=== PATIENT | male | born 1970 | race Caucasian/White ===

== ENCOUNTER 2020-10-08 09:54 | Day surgery (SDC) | payer OTHER, BC ==
[2020-10-07 08:18] VITALS: BMI 31.4
[~2020-10-08 09:54] MED LIST: LACTATED RINGERS 1,000 ML IV SCH
[2020-10-08 10:50] VITALS: TEMP 98.3
[2020-10-08] MEDS ORDERED: LIDOCAINE 1% INJ 10MG/ML (20 ML MDV) ONE (11:42)
[2020-10-08] MEDS ORDERED: PROPOFOL 10 MG/ML 20 ML VIAL IV ONE (11:42)
--- NOTE | 2020-10-08 11:57 | P.PCN ---
Date of Procedure: 10/08/20 Procedure(s) Performed: BRIEF HISTORY: Patient is a 50-year-old pleasant male scheduled for an elective colonoscopy as a part of screening for colorectal neoplasia. PROCEDURE PERFORMED: Colonoscopy with biopsy. PREOPERATIVE DIAGNOSIS: Screening for colon cancer. IV sedation per Anesthesia. PROCEDURE: After informed consent was obtained, the patient, was brought into the endoscopy unit. IV sedation was administered by Anesthesia under continuous monitoring. Digital rectal examination was normal. Initially the Olympus CF-160 flexible video colonoscope was then inserted in the rectum, gradually advanced into the cecum without any difficulty. Careful examination was performed as the scope was gradually being withdrawn. Ileocecal valve and the appendiceal orifice were visualized and appeared normal. Prep was excellent. Mucosa of the cecum appeared normal. In the ascending colon there was a 3 mm polyp that was removed by cold biopsy. Rest of the ascending colon, transverse colon, descending colon, sigmoid colon, and rectum appeared normal. Scattered sigmoid diverticula seen. Retroflexion was performed in the rectum and no lesions were seen. The patient tolerated the procedure well. IMPRESSION: 3 mm ascending colon polyp status post cold biopsy Scattered sigmoid diverticulosis RECOMMENDATIONS: Findings of this examination were discussed with the patient as well as his family. He was advised to follow with the biopsy results. If the biopsy shows an adenoma he can have a repeat colonoscopy in 5 years.
[2020-10-08 12:03] VITALS: RESP 17
[2020-10-08 12:15] VITALS: BP 149/98; PULSE 78
== END 2020-10-08 12:43 | disposition home or self-care (01) ==
LOC: ORWHC2ENDO 09:54
PROVIDERS: ATTEND Internal Medicine Gastroenterology
DX: Z12.11 Encounter for screening for malignant neoplasm of colon (principal); K63.5 Polyp of colon; K57.30 Diverticulosis of large intestine without perforation or abscess without bleeding
CPT/HCPCS: 88305; 45380; J2001; J2704

== ENCOUNTER 2021-12-20 11:41 | Emergency (ER) | payer BC ==
[2021-12-20 11:53] VITALS: RESP 18; TEMP 98
[2021-12-20] MEDS ORDERED: KETOROLAC 15 MG/ML 1 ML VIAL IVP STA (12:46)
--- NOTE | 2021-12-20 12:54 | ED ---
Chest Pain HPI - General Chief Complaint: Chest Pain Stated Complaint: chest pain Time Seen by Provider: 12/20/21 12:28 Source: patient, RN notes reviewed Mode of arrival: ambulatory Limitations: no limitations - History of Present Illness Initial Comments: 51-year-old male presents emergency Department chief complaint of chest discomfort. Patient states started late last labor worsen throughout the days morning. Patient states that he had an appointment which was a routine appointment with Dr. Hinojosa EKG noticed a subtle changes an EKG and he complaint right-sided chest pain. He does admit that was painting last night but denies any known chronic injury but states that the pain is worse with movement. He has no resting shortness breath no prior cardiac disease does have family history of heart disease. Patient denies any abdominal pain no back pain states pain has intensified throughout the day. - Related Data Previous Rx's Medication Instructions Recorded Cyclobenzaprine [Flexeril] 10 mg PO TID PRN #15 tab 12/20/21 Allergies Allergy/AdvReac Type Severity Reaction Status Date / Time No Known Allergies Allergy Verified 12/20/21 11:53 Review of Systems ROS Statement: Those systems with pertinent positive or pertinent negative responses have been documented in the HPI. ROS Other: All systems not noted in ROS Statement are negative. EKG Findings - EKG Comments: EKG Findings:: EKG performed at 11:57 sinus rhythm with rate of 78 AR 171 QRS 107 QT/QTC 400/433 Past Medical History Past Medical History: Hypertension History of Any Multi-Drug Resistant Organisms: None Reported Past Surgical History: Orthopedic Surgery Additional Past Surgical History / Comment(s): arthroscopy knee,fx toe repair at age 9 approx. Past Anesthesia/Blood Transfusion Reactions: Previous Problems w/ Anesthesia, Family History of Problems w/ Anesthesia Additional Past Anesthesia/Blood Transfusion Reaction / Comment(s): took a long time to wake up w/ surgery at age 9, son took a long time to wake up Smoking Status: Never smoker Past Alcohol Use History: Occasional Past Drug Use History: None Reported - Past Family History Mother Family Medical History: No Reported History General Exam Limitations: no limitations General appearance: alert, in no apparent distress Head exam: Present: atraumatic, normocephalic, normal inspection Eye exam: Present: normal appearance, PERRL, EOMI. Absent: scleral icterus, conjunctival injection, periorbital swelling ENT exam: Present: normal exam, normal oropharynx, mucous membranes moist Neck exam: Present: normal inspection, full ROM. Absent: tenderness, meningismus, lymphadenopathy Respiratory exam: Present: normal lung sounds bilaterally, chest wall tenderness. Absent: respiratory distress, wheezes, rales, rhonchi, stridor Cardiovascular Exam: Present: regular rate, normal rhythm, normal heart sounds. Absent: systolic murmur, diastolic murmur, rubs, gallop, clicks GI/Abdominal exam: Present: soft, normal bowel sounds. Absent: distended, t enderness, guarding, rebound, rigid Course Vital Signs 12/20/21 11:49 Temperature 98 F Pulse Rate 75 Respiratory 18 Rate Blood Pressure 172/82 O2 Sat by Pulse 98 Oximetry Chest Pain MDM - MDM 51-year-old male presented for atypical chest pain. Workup was negative including labs, EKG and chest x-ray. Patient's pain is reproducible and consistent with chest wall pain. Patient we discharged in stable condition return parameters were discussed. Disposition Clinical Impression: Chest wall pain Disposition: HOME SELF-CARE Condition: Stable Instructions (If sedation given, give patient instructions): Chest Wall Pain (ED) Additional Instructions: Please return to the Emergency Department if symptoms worsen or any other concerns. Prescriptions: Cyclobenzaprine [Flexeril] 10 mg PO TID PRN #15 tab PRN Reason: Muscle Spasm Is patient prescribed a controlled substance at d/c from ED?: No Referrals: Andres Swanson DO [Primary Care Provider] - 1-2 days Time of Disposition: 13:52
[2021-12-20 13:06] LABS: ALT 33 U/L (4-49); AST 33 U/L (17-59); African American GFR (CKD) >90 (>60 ml/min/1.73 sqM); Albumin 5.1 g/dL (3.5-5.0); Alkaline Phosphatase 62 U/L (38-126); Anion Gap 10 mmol/L; Blood Urea Nitrogen 19 mg/dL (9-20); Calcium 10.5 mg/dL (8.4-10.2); Carbon Dioxide 29 mmol/L (22-30); Chloride 100 mmol/L (98-107); Glucose 99 mg/dL (74-99); Lipase 114 U/L (23-300); Magnesium 1.7 mg/dL (1.6-2.3); Non-African American GFR(CKD) >90 (>60 ml/min/1.73 sqM); Potassium 3.9 mmol/L (3.5-5.1); Sodium 139 mmol/L (137-145); Total Bilirubin 1.8 mg/dL (0.2-1.3)
[2021-12-20 13:17] LABS: Basophils % (A) 0 %; Eosinophils # (A) 0.2 k/uL (0-0.7); Eosinophils % (A) 3 %; HGB 16.6 gm/dL (13.0-17.5); Lymphocytes # (A) 0.6 k/uL (1.0-4.8); Lymphocytes % (A) 8 %; MCH 30.4 pg (25.0-35.0); MCHC 35.3 g/dL (31.0-37.0); Mean Platelet Volume 8.9; Monocytes # (A) 0.7 k/uL (0-1.0); Monocytes % (A) 9 %; Neutrophils # (A) 5.9 k/uL (1.3-7.7); Neutrophils % (A) 78 %; Platelet Count 186 k/uL (150-450); RBC 5.46 m/uL (4.30-5.90); RDW 14.3 % (11.5-15.5); WBC 7.6 k/uL (3.8-10.6)
[2021-12-20 13:25] LABS: Partial Thromboplastin Time 26.8 sec (22.0-30.0); Prothrombin Time 10.6 sec (9.0-12.0)
--- NOTE | 2021-12-20 13:25 | XR ---
EXAMINATION TYPE: XR chest 2V DATE OF EXAM: 12/20/2021 COMPARISON: NONE TECHNIQUE: PA and lateral views submitted. HISTORY: Chest pain FINDINGS: The lungs are clear and there is no pneumothorax, pleural effusion, or focal pneumonia. Heart size normal. No overt failure. Arthropathy of the AC joints. IMPRESSION: 1. No acute process.
[2021-12-20] MEDS ORDERED: ACET/COD 300 MG/30 MG STARTER PACK 6 TAB BTL PO STA (13:52)
[2021-12-20 14:56] VITALS: BP 132/78; PULSE 80
== END 2021-12-20 14:56 | disposition home or self-care (01) ==
LOC: EC 11:41
DX: R07.89 Other chest pain (principal); I10 Essential (primary) hypertension
CPT/HCPCS: 36415; 93005; 80053; 83690; 83735; 84484; 85025; 85610; 85730; 71046; 99285; 96374; J1885

== ENCOUNTER → 2023-11-12 | Outpatient (CLI) | payer BC ==
--- NOTE | 2023-11-12 15:39 | US ---
EXAMINATION TYPE: US renal artery duplex complete DATE OF EXAM: 11/12/2023 COMPARISON: NONE CLINICAL INDICATION: Male, 53 years old with history of I70.1 ATHEROSCLEROSIS OF RENAL ARTERY; HTN, e trino on meds, family history of htn MEASUREMENTS: RENAL SIZE: Right Kidney: 10.3 x 5.1 x 7.2cm Left Kidney: 11.0 x 6.0 x 6.6cm Right Kidney: No hydronephrosis or lesions seen Left Kidney: No hydronephrosis or lesions seen Abd Aorta: No AAA visualized. The proximal portion is borderline ectatic at 2.5 cm. 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 No sonographic/Doppler evidence for renal artery stenosis on either side.
== END | disposition home or self-care (01) ==
LOC: RADUSWWP 12:35
PROVIDERS: ATTEND Family Medicine
DX: I70.1 Atherosclerosis of renal artery (principal); I10 Essential (primary) hypertension; Z82.49 Family history of ischemic heart disease and other diseases of the circulatory system
CPT/HCPCS: 93975

== ENCOUNTER → 2023-12-19 | Outpatient (CLI) | payer BC ==
--- NOTE | 2023-12-19 11:30 | MR ---
EXAMINATION TYPE: MR abdomen wo/w con DATE OF EXAM: 12/19/2023 COMPARISON: Renal duplex ultrasound 11/12/2023 HISTORY: 53-year-old male D30.00, High blood pressure, benign tumor of kidney Technique: Multiplanar, multisequence images of the abdomen were obtained before and after administra tion of 10 mL intravenous Gadavist gadolinium contrast. FINDINGS: Heart normal size without pericardial effusion. There is some signal drop of the liver on out of phase T1 weighted image suggesting at least mild fat ty infiltration. No focal lesion is seen within the liver. Abnormal gallbladder distention. Portal ve nous system is patent. No biliary ductal dilatation. Adrenal glands, spleen, and pancreas within normal limits. No hydronephrosis on either side. There are keenan bilateral renal arteries without any appreciable renal artery narrowing on either side by MRI. There is a minimally lobulated benign 2.1 cm cyst at the mid to lower pole of the left kidney. No oth er suspicious renal lesion is seen. There appears to be some inspissated material at the cecum. Otherwise, no gross bowel abnormality, as cites fluid, or upper abdominal lymphadenopathy. IMPRESSION: 1. At least mild hepatic steatosis. Correlate with LFTs, lipid profile, and patient risk factors. 2. A benign 2.1 cm cyst of the left kidney. No suspicious renal mass or hydronephrosis. 3. No appreciable renal artery stenosis by nonangiographic MRI.
== END | disposition home or self-care (01) ==
LOC: RADMRIMAIN 06:33
PROVIDERS: ATTEND Family Medicine
DX: D30.00 Benign neoplasm of unspecified kidney (principal); K76.0 Fatty (change of) liver, not elsewhere classified; N28.1 Cyst of kidney, acquired
CPT/HCPCS: 74183; A9585